=== PATIENT | female | born 1945 | race Caucasian/White ===

== ENCOUNTER 2023-06-10 10:45 | Emergency (ER) | payer MEDICARE, SELFPAY ==
[2023-06-10] VITALS (7 sets, daily range): BP systolic 105–125; BP diastolic 62–74; PULSE 61–75; RESP 16–20; TEMP 36.7–37.2; O2SAT 89–96; BMI 35.4
--- NOTE | 2023-06-10 10:59 | ED_ITS ---
HPI - Extremity Problem General: Chief complaint: Extremity Problem,Nontraumatic Stated complaint: swollen feet/sob Time Seen by Provider: 06/10/23 10:58 History of Present Illness: This 78-year-old female presents to the ER for evaluation of bilateral lower extremity edema that started about a week ago. Patient reports that about a month ago, she was started on midodrine because of low blood pressure. At that time, she was [place] and was admitted in the hospital for 2 days. She has been taking the midodrine since then but last week she noticed that she was developing bilateral edema in both lower extremities. She denies chest pain, fever, nausea or vomiting. She does experience some shortness of breath especially with exertion. Patient appears clinically stable and has normal oxygen saturation on room air. She called her primary care provider who advised her to come to the ER for evaluation. Associated symptoms: Deny chest pain Review of Systems Const: Denies: chills, body aches or change in appetite Eyes: Denies: change in vision or eye discharge ENMT: Denies: throat pain, dental pain or nasal discharge Card: Reports: dyspnea on exertion; Denies: chest pain or lightheadedness Resp: Reports: dyspnea (on exertion) : Denies: dysuria Musc: Reports: extremity swelling (Bilateral pedal edema); Denies: neck pain or back pain Neuro: Denies: headache(s) or weakness in extremities Psych: Denies: depression Ramses/Lymph: Denies: easy bruising All/Imm: Denies: urticaria, tongue swelling or facial swelling Physical Exam Const: COMMON NORMALS: no acute distress, patient oriented x3, no limitations and alert HENMT: COMMON NORMALS: normocephalic HEAD & SCALP: normocephalic Eye: COMMON NORMALS: EOMs intact bilaterally Neck/C-Spine: COMMON NORMALS: full ROM and supple Chest: COMMONS NORMALS: normal inspection of the chest Resp: COMMON NORMALS: normal respiratory effort, No retractions, No use of accessory muscles and clear to auscultation bilaterally AUSCULTATION: clear to auscultation bilaterally Cardio: COMMON NORMALS: regular rate, regular rhythm and No murmurs present (Cardio) RATE: regular rate RHYTHM: regular rhythm GI: COMMON NORMALS: Normal to inspection, nondistended, normoactive bowel sounds present and non-tender : COMMON NORMALS: Yes no CVA tenderness BLADDER/KIDNEY EXAM: Yes no CVA tenderness Back/Pelvis: COMMON NORMALS: no CVA tenderness and no thoracic nor lumbar tenderness Extremity: GENERAL: Yes normal exam except as noted OTHER: Mild bilateral pedal edema Neuro: COMMON NORMALS: patient oriented x3 and no focal motor deficits SENSORIUM/ORIENTATION: Yes alert Psych: COMMON NORMALS: mental status grossly normal and cooperative Course Vital Signs: Vital signs: Vital Signs Temperature 98.9 F 06/10/23 13:10 Pulse Rate 61 06/10/23 13:10 Respiratory Rate 20 H 06/10/23 13:10 Blood Pressure 123/62 06/10/23 13:10 Pulse Oximetry 93 06/10/23 13:10 Oxygen Delivery Me thod Room Air 06/10/23 13:00 Oxygen Flow Rate 2 06/10/23 12:00 MDM - Extremity (Nontraumatic) Medical Decision Making Medical decision making: History as above. Patient's primary reason for coming to the ER is bilateral pedal edema that started about a week ago. On exam, the edema is mild. Completed blood test revealed normal BNP and a chest x-ray that is not consistent with CHF. In addition, patient has normal oxygen saturation on room air and is not in respiratory distress. There is no indication to admit her at this time. She will be started on 20 mg Lasix daily and was advised to elevate her lower extremities as much as possible. She will follow-up with her primary care physician within a week. Reasons to return were discussed. Patient verbalized understanding and agrees with the plan. Lab Data 06/10/23 11:20 06/10/23 11:20 Laboratory Results WBC 3.45 10^3/uL (3.29-11.43) 06/10/23 11:20 RBC 3.82 10^6/uL (3.85-5.65) L 06/10/23 11:20 Hgb 12.70 g/dL (11.27-16.99) 06/10/23 11:20 Hct 37.8 % (36-47) 06/10/23 11:20 MCV 99.0 fl (85-98) H 06/10/23 11:20 MCH 33.2 pg (27-33) H 06/10/23 11:20 MCHC 33.6 g/dL (30-55) 06/10/23 11:20 RDW 12.4 % (12.1-15.1) 06/10/23 11:20 Plt Count 127 10^3/cmm (157-399) L 06/10/23 11:20 MPV 11.4 fL (7.4-10.4) H 06/10/23 11:20 Neut % (Auto) 52.1 % 06/10/23 11:20 Lymph % (Auto) 31.0 % 06/10/23 11:20 [place] % (Auto) 15.4 % 06/10/23 11:20 Eos % (Auto) 0.9 % 06/10/23 11:20 Baso % (Auto) 0.3 % 06/10/23 11:20 Neut # (Auto) 1.80 10^3/uL (1.8-7.7) 06/10/23 11:20 Lymph # (Auto) 1.1 10^3/uL (0.8-4.8) 06/10/23 11:20 [place] # (Auto) 0.5 10^3/uL (0.2-0.9) 06/10/23 11:20 Eos # (Auto) 0.0 10^3/uL (0.0-0.8) 06/10/23 11:20 Baso # (Auto) 0.0 10^3/uL (0.0-0.1) 06/10/23 11:20 Nucleated RBC % (auto) 0 % 06/10/23 11:20 Nucleated RBCs # 0.0 /100WBC 06/10/23 11:20 Sodium 138 mmol/L (136-145) 06/10/23 11:20 Potassium 4.0 mmol/L (3.5-5.1) 06/10/23 11:20 Chloride 104 mmol/L (98-107) 06/10/23 11:20 Carbon Dioxide 22 mmol/L (22-29) 06/10/23 11:20 Anion Gap 16.0 (5-19) 06/10/23 11:20 BUN 10 mg/dL (8-23) 06/10/23 11:20 Creatinine 1.0 mg/dL (0.5-0.9) H 06/10/23 11:20 GFR Calculation Not Reportable 06/10/23 11:20 Glucose 193 mg/dL (65-115) H 06/10/23 11:20 Calculated Osmolality 290 mOsm/kg (285-295) 06/10/23 11:20 Calcium 8.9 mg/dL (8.5-10.5) 06/10/23 11:20 Total Bilirubin 0.9 mg/dL (0.15-1.2) 06/10/23 11:20 AST 31 U/L (0-32) 06/10/23 11:20 ALT 24 U/L (0-33) 06/10/23 11:20 Alkaline Phosphatase 111 U/L (35-105) H 06/10/23 11:20 NT-Pro-B Natriuret Pep 279 pg/mL (0-450) 06/10/23 11:20 Total Protein 7.0 g/dL (6.6-8.7) 06/10/23 11:20 Albumin 3.8 g/dL (3.5-5.2) 06/10/23 11:20 Globulin 3.2 g/dL (1.3-4.6) 06/10/23 11:20 All radiology interpretation(s) finalized by discharge Discharge Plan Discharge Patient Disposition: Home Clinical Impression: Lower extremity edema Condition: Stable Prescriptions: New Lasix 20 mg tablet 20 mg PO DAILY Qty: 30 0RF No Action fluoxetine 40 mg capsule 40 mg PO DAILY anastrozole 1 mg tablet 1 mg PO DAILY Synthroid 88 mcg tablet 88 mcg PO DAILY pantoprazole 40 mg tablet,delayed release (DR/EC) 40 mg PO DAILY midodrine 2.5 mg tablet 2.5 mg PO TID pregabalin 75 mg capsule 75 mg PO BID Calcium 500 + D (D3) 500 mg-3.125 mcg (125 unit) Tablet 1 tab PO DAILY Discharge Orders: Discharge ED (Routine); Ordered 06/10/23 Ordered By: Flora Smith Discharge Diet: Usual diet Discharge Activity: Resume usual activity Patient Instructions: Opioid Safety, Pain Management Activity Restrictions/Additional Instructions: Start taking Lasix as prescribed. Closely monitor your blood pressure. Follow-up with your primary care physician within a week for reevaluation. Return if you develop any new or worsening symptoms. Coding Level of Care Code ED Health Care Facility Administrator for Lorraine Sanches
--- NOTE | 2023-06-10 11:08 | XR_ITS ---
WS: [id number] EXAMINATION: XR chest 1V portable [id number] REASON FOR EXAM: bilateral leg swelling COMPARISON: None available. ORDER DATE: 06/10/2023 11:08 AM TECHNIQUE: A single, portable frontal chest x-ray was obtained. X-RAY FINDINGS: The lungs are clear. Pleural spaces are clear. No pleural effusions or pneumothorax. Cardiomediastinal silhouette is normal. No evidence for pulmonary edema. Soft tissue and osseous structures are unremarkable. There are scattered surgical clips in the right axillary region. IMPRESSION: Unremarkable frontal portable chest x-ray.
[2023-06-10 11:27] LABS: Basophils % 0.3 %; Eosinophils % 0.9 %; Hematocrit 37.8 % (36-47); Lymphocytes # 1.1 10^3/uL (0.8-4.8); Mean Corpuscular HGB Conc 33.6 g/dL (30-55); Mean Corpuscular Hemoglobin 33.2 pg (27-33); Mean Platelet Volume 11.4 fL (7.4-10.4); Monocytes # 0.5 10^3/uL (0.2-0.9); Monocytes % 15.4 %; Neutrophils % 52.1 %; Nucleated Red Blood Cells % 0 %; Platelet Count 127 10^3/cmm (157-399); Red Blood Count 3.82 10^6/uL (3.85-5.65); Red Cell Distribution Width 12.4 % (12.1-15.1); White Blood Count 3.45 10^3/uL (3.29-11.43)
[2023-06-10 11:52] LABS: Alanine Aminotransferase 24 U/L (0-33); Albumin Level 3.8 g/dL (3.5-5.2); Alkaline Phosphatase 111 U/L (35-105); Aspartate Amino Transferase 31 U/L (0-32); Blood Urea Nitrogen 10 mg/dL (8-23); Calcium 8.9 mg/dL (8.5-10.5); Carbon Dioxide 22 mmol/L (22-29); Chloride 104 mmol/L (98-107); Globulin 3.2 g/dL (1.3-4.6); Glucose 193 mg/dL (65-115); NT Pro B Type Natriuretic Pept 279 pg/mL (0-450); Osmolality Calculated 290 mOsm/kg (285-295); Sodium 138 mmol/L (136-145); Total Bilirubin 0.9 mg/dL (0.15-1.2)
--- NOTE | 2023-06-10 13:35 | PC.NURSE ---
All prescriptions sent with patient and family. Family verbalized understanding along with patient. All IVs removed. patient ambulated out of ER to main exit with family at 1328
== END 2023-06-10 13:28 | disposition home or self-care (01) ==
PROVIDERS: Emergency Provider Family Medicine
DX: R60.0 Localized edema (principal)
CPT/HCPCS: 71045; 80053; 83880; 85025; 99284